=== PATIENT | male | born 1965 | race Caucasian/White ===

== ENCOUNTER → 2017-02-05 | Outpatient (CLI) | payer OTHER ==
[2017-02-05 12:59] LABS: BLOOD GAS BASE EXCESS -1.2 mmol/L (-2-2); BLOOD GAS CARBOXYHEMOGLOBIN 2.9 % (0-4); BLOOD GAS HCO3 23 mmol/L (22-26); BLOOD GAS METHEMOGLOBIN 1.3 % (0-2); BLOOD GAS O2 HGB SATURATION 92 % (90-100); BLOOD GAS OXYGEN CONTENT 21.4 Vol % (12.0-20.0); BLOOD GAS PCO2 36 mmHg (38-42); BLOOD GAS PO2 76 mmHg (61-120); BLOOD GAS TOTAL HGB 16.5 G/DL (12.0-16.0); CRITICAL VALUE NO; DRAW SITE RT RADIAL; FIO2 21 %; NUMBER OF ARTERIAL PUNCTURES 1; STAT NO; TEMP CORR TO 98.6; ULNAR PULSE PRESENT
--- NOTE | 2017-02-05 13:24 | RADRPT ---
EXAM DATE/TIME: 02/05/2017 12:41 [place] COMPARISON: No previous studies available for comparison. INDICATIONS : Shortness of Breath MEDICAL HISTORY : Chronic obstructive pulmonary disease. SURGICAL HISTORY : None. ENCOUNTER: Initial ACUITY: 2 weeks PAIN SCORE: 0/10 LOCATION: Bilateral chest FINDINGS: PA and lateral views of the chest demonstrate the lungs to be symmetrically aerated without evidence of mass, infiltrate or effusion. The cardiomediastinal contours are unremarkable. Osseous structure s are intact. CONCLUSION: No acute disease. Miguel Pham MD on February 05, 2017 at 13:22 Board Certified Radiologist. This report was verified electronically.
--- NOTE | 2017-02-15 09:06 | RSPPFT ---
DATE OF PROCEDURE: 02/05/17 COMMENTS: Spirometry with FVC of 4.4, FEV1 of 2.8, FEV1/FVC ratio at 64%. A positive but non-significant response to inhaled bronchodilator noted. Slow vital capacity is 77%. TLC is 97%. Diffusion capacity is normal. Room air arterial blood gases show pH of 7.42, PCO2 of 36, PO2 of 76. IMPRESSION: 1. Moderate airways obstruction. 2. Positive but non-significant response to inhaled bronchodilator. 3. No evidence of airways restriction. 4. Normal diffusion capacity. 5. Adequate oxygenation and alveolar ventilation.
== END ==
LOC: HRSP 11:18
PROVIDERS: ATTEND Internal Medicine Sleep Medicine
DX: R06.89 Other abnormalities of breathing (principal)
CPT/HCPCS: 36600; 71020; 82805; 94060; 94726; 94729

== ENCOUNTER 2018-03-11 11:48 | Emergency (ER) | payer SELFPAY ==
[~2018-03-11] VITALS: Ht 188 cm; Wt 100.0 kg
[2018-03-11 12:00] VITALS: BP 122/72; PULSE 98; RESP 16; TEMP 97.6; O2SAT 97
[2018-03-11] MEDS ORDERED: predniSONE 20 MG TAB PO ONE (13:45)
--- NOTE | 2018-03-11 13:58 | RADRPT ---
EXAM DATE: 03/11/2018 1:56 PM EDT AGE/SEX: 52 years / Male INDICATIONS: Wheezing. CLINICAL DATA: This is the patient's initial encounter. Patient reports that signs and symptoms have been present for 3 months and indicates a pain score of 0/10. MEDICAL/SURGICAL HISTORY: Chronic obstructive pulmonary disease. None. COMPARISON: [facility] [place], CHEST PA & LAT, 02/05/2017. . FINDINGS: PA and lateral views of the chest demonstrate the lungs to be symmetrically aerated without evidence of mass, infiltrate or effusion. The cardiomediastinal contours are unremarkable. Osseous structures are intact. CONCLUSION: Negative for acute process. Electronically signed by: Erick Salgado MD 03/11/2018 1:57 PM EDT
[2018-03-11] MEDS ORDERED: GUAISYP4 PO ×2 (14:05→14:06)
[2018-03-11] MEDS ORDERED: AZIT250T3 PO ×2 (14:05→14:06)
[2018-03-11] MEDS ORDERED: PRED20 PO ×2 (14:05→14:06)
--- NOTE | 2018-03-11 14:10 | PD ---
HPI Chief Complaint: Cold / Flu Symptoms Time Seen by Provider: 13:29 Travel History International Travel<30 days: No Contact w/Intl Traveler<30days: No Traveled to known affect area: No History of Present Illness HPI 52-year-old male the presents to the ED for evaluation of cold-like symptoms for about 9 days now. Patient has had productive cough as well as pain in his chest with a cough for the past 9 days. Nothing seems to be making it better. He does use inhalers and has a history of COPD. He has a history also of chronic pain. He denies any shortness of breath with exertion. She denies any chest pain. He states compliance with his medications but states that his symptoms continue. Per patient his was recently diagnosed with upper respiratory infection and that is when the symptoms started. He states having some chills and sweats on occasion. Feels somewhat weak on occasion. Has not seen anybody for this. Has no allergies to medication. No other medical issues at this time. When pain comes to the chest he feels like a burning sensation in his 5 out of 10. PFSH Past Medical History Diabetes: Yes Social History Alcohol Use: No Tobacco Use: No (quit years ago) Substance Use: No Allergies-Medications (Allergen,Severity, Reaction): Coded Allergies: No Known Allergies (Unverified , 03/11/18) Reported Meds & Prescriptions Reported Meds & Active Scripts Active Azithromycin 250 Mg Tab 250 Mg PO DIRECTED Take 2 tabs (500 mg) on day 1 then 1 tab daily x 4 days. Prednisone 20 Mg Tab 20 Mg PO BID 5 Days Guaifenesin AC Liq (Guaifenesin-Codeine Liq) 100-10 Mg/5 Ml Syrp 5 Ml PO Q6H PRN Review of Systems Except as stated in HPI: all other systems reviewed are Neg Physical Exam Narrative GENERAL: Well-nourished, well-developed patient in no apparent distress. SKIN: Warm and dry. HEAD: Atraumatic. Normocephalic. EYES: Pupils equal and round reactive to light and accommodation. No scleral icterus. No injection or drainage. ENT: No nasal bleeding or discharge. Mucous membranes pink and moist. TMs are clear with no sign of infection or perforation. No mastoid tenderness. Ear canals are intact bilaterally. No lymphadenopathy. Nostril mucosa is red and moist with clear mucus noted. No sinus tenderness to palpation noted. Tonsils are not enlarged or swollen. No ulvua Deviation. Tongue is midline. NECK: Trachea midline. No JVD. No meningeal signs noted CARDIOVASCULAR: Regular rate and rhythm. RESPIRATORY: No accessory muscle use. Mild wheezing heard in examination. Breath sounds equal bilaterally. GASTROINTESTINAL: Abdomen soft, non-tender, nondistended. Hepatic and splenic margins not palpable. MUSCULOSKELETAL: Extremities without clubbing, cyanosis, or edema. No obvious deformities. Full range of motion of the upper and lower extremities bilaterally. 2+ pulses bilaterally. NEUROLOGICAL: Awake and alert. No obvious cranial nerve deficits. Motor grossly within normal limits. Five out of 5 muscle strength in the arms and legs. Normal speech. PSYCHIATRIC: Appropriate mood and affect; insight and judgment normal. Data Data Last Documented VS Vital Signs Date Time Temp Pulse Resp B/P (MAP) Pulse Ox O2 Delivery O2 Flow Rate FiO2 03/11/18 12:00 97.6 98 16 122/72 (89) 97 Orders Orders Chest, Pa & Lat (03/11/18 ) Prednisone (Deltasone) (03/11/18 13:45) MDM Medical Decision Making Medical Screen Exam Complete: Yes Emergency Medical Condition: Yes Medical Record Reviewed: Yes Interpretation(s) Last Impressions Chest X-Ray 03/11/18 0000 Signed Impressions: CONCLUSION: Negative for acute process. Differential Diagnosis COPD exacerbation versus bronchitis versus pneumonia Narrative Course 52-year-old male the presents to the ED for evaluation of cold like symptoms. Patient was properly examined and was found to have signs and symptoms consistent with appears to be bronchitis versus pneumonia versus COPD. Chest x- ray was done and was negative for acute disease. No sign of pneumonia. At this time this appears to be more likely bronchitis. Like secondary to the COPD. Will treat with antibiotics, codeine medicine for cough as well as prednisone. Told to continue using inhalers as prescribed by his doctor. Follow-up with PCP. See ED if worsening symptoms. Diagnosis Primary Impression: Bronchitis Patient Instructions: General Instructions Additional Instructions: Motrin and Tylenol for pain and fever. You can use [id number] antihistamine as well as well as Mucinex as needed for runny nose and congestion. Cough drops for cough as needed. Drink plenty of fluids. Follow-up with PCP. See ED for worsening symptoms. Med/Other Pt SpecificInfo: Prescription(s) given Scripts Azithromycin (Azithromycin) 250 Mg Tab 250 MG PO DIRECTED for Infection, #6 TAB 0 Refills Take 2 tabs (500 mg) on day 1 then 1 tab daily x 4 days. Prov: Omero Barnes MD 03/11/18 Prednisone (Prednisone) 20 Mg Tab 20 MG PO BID for 5 Days, #10 TAB 0 Refills Prov: Omero Barnes MD 03/11/18 Guaifenesin-Codeine Liq (Guaifenesin AC Liq) 100-10 Mg/5 Ml Syrp 5 ML PO Q6H Y for COUGH, #120 BOTTLE 0 Refills Prov: Omero Barnes MD 03/11/18 Disposition: 01 DISCHARGE HOME Condition: Stable Abraham Lujan Mar 11, 2018 14:10
[2018-03-11] MEDS ORDERED: RESP: ALBUTEROL 2.5 MG/IPRATROPIUM 0.5 MG NEB (SCH) INH ONE (14:15)
== END 2018-03-11 14:29 | disposition home or self-care (01) ==
LOC: NEPK 11:48
DX: J44.9 Chronic obstructive pulmonary disease, unspecified (principal); Z87.891 Personal history of nicotine dependence
CPT/HCPCS: 71046; 99283; J7512